=== PATIENT | male | born 1970 | race Caucasian/White ===

== ENCOUNTER 2017-01-05 20:29 | Emergency (ER) | payer SELFPAY ==
[~2017-01-05] VITALS: Ht 182.9 cm; Wt 86.2 kg
[~2017-01-05 20:29] MED LIST: CLINDAMYCIN HC300 MG ORAL; KEFLEX500 MG ORAL; KLONOPIN1 MG ORAL; ZYPREXA5 MG ORAL
[2017-01-05] MEDS ORDERED: Haloperidol 5mg/ml Inj IM ONE (21:00)
[2017-01-05 21:26] VITALS: BP 130/75
[2017-01-05 22:00] VITALS: BP 128/74
[2017-01-05 22:10] VITALS: BP 128/74
--- NOTE | 2017-01-07 15:04 | Emergency Room Report ---
History of Present Illness General Chief Complaint: Behavioral Complaint Source: Patient Present Illness HPI Patient's 46-year-old male who presented after increased generalized body aches. Patient states that he usually been taking heroin or methamphetamine but is not feeling well at this time. He denies any fever. Patient states that he does not hear voices or intent to hurt himself. He denies any fever shortness of breath. History is limited by patient's poor cooperation. Allergies: Coded Allergies: NO KNOWN DRUG ALLERGIES (Unverified Allergy, Unknown, 12/18/13) Patient History Past Medical History: see triage record Reviewed Nursing Documentation: PMH: Agreed, PSxH: Agreed Nursing Documentation-PMH Past Medical History: No Stated History Review of Systems All Other Systems: limited - by poor cooperation Physical Exam Vital Signs Date Time Temp Pulse Resp B/P (MAP) Pulse Ox O2 Delivery O2 Flow Rate FiO2 01/05/17 20:39 98.2 78 17 130/75 96 Room Air General Appearance: well appearing, no apparent distress, alert, GCS 15 Head: normocephalic, atraumatic ENT: hearing grossly normal, normal voice Neck: full range of motion, supple Respiratory: no respiratory distress, speaking full sentences Cardiovascular #1: regular rate, rhythm Gastrointestinal: normal inspection Musculoskeletal: normal inspection, no calf tenderness Neurologic: normal inspection, alert, oriented x3, normal gait Psychiatric: normal inspection, mood/affect normal Skin: no rash Medical Decision Making Diagnostic Impression: Primary Impression: Behavioral disorder ER Course Patient presented for generalized aches. Differential diagnoses include substance abuse, psychosis, bipolar disorder, depression, malingering, medication withdrawal. The patient was given IM Haldol for agitation. Patient does not appear require any acute psychiatric hospitalization at this time. Advised followup with outpatient mental health. Last Vital Signs Date Time Temp Pulse Resp B/P (MAP) Pulse Ox O2 Delivery O2 Flow Rate FiO2 01/05/17 22:10 98.4 80 18 128/74 100 Room Air Status: improved Disposition: HOME, SELF-CARE Condition: Stable Referrals: NOT CHOSEN IPA/MD,REFERRING (PCP) Patient Instructions: Substance Use Disorder Jimbo Oswald Jan 07, 2017 15:04
== END 2017-01-05 22:10 | disposition home or self-care (01) ==
LOC: EMR 21:18
DX: F91.9 Conduct disorder, unspecified (principal); F15.90 Other stimulant use, unspecified, uncomplicated; F11.90 Opioid use, unspecified, uncomplicated
CPT/HCPCS: 96372; 99283; J1630